=== PATIENT | male | born 1985 | race Caucasian/White ===

== ENCOUNTER 2022-03-31 23:26 | Emergency (ER) | payer MEDICAID ==
[~2022-03-31] VITALS: Ht 157.5 cm; Wt 77.1 kg
[2022-03-31 23:38] VITALS: BP 121/81
[2022-03-31] MEDS ORDERED: CEPH500C2 PO (23:41)
[2022-03-31] MEDS ORDERED: NABU-139 PO (23:41)
[2022-03-31] MEDS ORDERED: CEPHALEXIN MONOHYDRATE 500 MG CAPSULE PO ONE (23:42)
[2022-03-31] MEDS ORDERED: KETOROLAC TROMETHAMINE INJ 60 MG/2 ML VIAL IM ONE (23:42)
[2022-04-01] MEDS ORDERED: KETOROLAC TROMETHAMINE INJ 60 MG/2 ML VIAL IM ONE
[2022-04-01] MEDS ORDERED: CEPHALEXIN MONOHYDRATE 500 MG CAPSULE PO ONE
== END 2022-03-31 23:47 | disposition home or self-care (01) ==
LOC: ER 23:29
DX: L03.116 Cellulitis of left lower limb (principal)
CPT/HCPCS: 99283; 96372; J1885

== ENCOUNTER 2024-07-27 10:32 | Emergency (ER) | payer MEDICAID, OTHER ==
[~2024-07-27] VITALS: Ht 154.9 cm; Wt 72.6 kg
[~2024-07-27 10:32] MED LIST: CEPH500C2 PO; NABU-139 PO
[2024-07-27 10:41] VITALS: BP 111/61; TEMP 97.7
[2024-07-27] MEDS ORDERED: KETOROLAC TROMETHAMINE INJ 30 MG/ML VIAL ONE ×3 (11:04→11:06)
[2024-07-27] MEDS: KETOROLAC TROMETHAMINE INJ 30 MG/ML VIAL IM ONE (11:10)
[2024-07-27] MEDS ORDERED: IBUP-1957 PO (12:56)
[2024-07-27 13:16] VITALS: O2SAT 99
== END 2024-07-27 13:18 | disposition home or self-care (01) ==
LOC: ER 10:38
DX: S76.112A Strain of left quadriceps muscle, fascia and tendon, initial encounter (principal); M25.562 Pain in left knee; Z60.2 Problems related to living alone; X58.XXXA Exposure to other specified factors, initial encounter; Y93.89 Activity, other specified; Y92.89 Other specified places as the place of occurrence of the external cause; Y99.8 Other external cause status
CPT/HCPCS: 99283; 96372; 73564; J1885 ×2